=== PATIENT | male | born 1975 | race Caucasian/White ===

== ENCOUNTER 2016-06-28 15:28 | Emergency (ER) | payer BC ==
[~2016-06-28] VITALS: Ht 185.4 cm; Wt 113.4 kg
--- NOTE | ~2016-06-28 | EKG ---
[place] [address] [facility] [employer] [place] [address] ELECTROCARDIOGRAM REPORT Name: KYA POWELL Room #: [facility] [id number] Admission: 06/28/16 Attend Phys: Discharge: Date of : 71 Report #: [id number] THIS REPORT FOR: //name// [facility] ED Test Date: 2016-06-28 Test Time: 15:36:30 Pat Name: KYA POWELL Department: Room: Gender: M Captain Of [employer]: KKREISEPearl : 1975 Requested By: Chucky Gaytan Order Number: [id number] MD: Alvarado Chowdhury Measurements Intervals [place]ia Rate: 70 P: 57 [place]: 160 QRS: 10 QRSD: 114 T: 4 QT: 390 QTc: 421 Interpretive Statements Sinus rhythm Probable left atrial enlargement Incomplete right bundle branch block ST elev, probable normal early repol pattern No previous ECG available for comparison Electronically Signed On 06-28-2016 17:17:25 CDT by Alvarado Chowdhury [email or web address] <ELECTRONICALLY SIGNED> By: Alvarado Chowdhury MD 06/28/16 1717 1536 1536 Alvarado Chowdhury MD /TELMA
[2016-06-28 16:27] LABS: ABSOLUTE NEUTROPHILS 5.5 thou/uL (1.4-8.2); BASOPHILS 0.4 % (0.0-2.0); EOSINOPHILS 1.9 % (0.0-3.0); HEMATOCRIT 42.6 % (42.0-52.0); LYMPHOCYTES 24.7 % (24.0-44.0); MANUAL DIFF NO; MCH 31.5 pg (26.0-34.0); MCHC 35.3 g/dL (28.0-37.0); MCV 89.1 fL (80.0-100.0); PLATELET COUNT 211 thou/uL (150-400); RBC 4.78 mil/uL (4.50-6.00); WBC 8.6 thou/uL (4.0-11.0)
[2016-06-28 16:35] LABS: ANION GAP 8 mmol/L (7-16); BUN 24 mg/dL (7-18); CALCIUM 8.3 mg/dL (8.5-10.1); CHLORIDE 103 mmol/L (98-107); CO2 25 mmol/L (21-32); GLUCOSE 98 mg/dL (74-106); POTASSIUM 3.6 mmol/L (3.5-5.1); SODIUM 136 mmol/L (136-145)
[2016-06-28 16:47] LABS: NT-PRO BRAIN NAT PEPTIDE 23 pg/mL (<300); TROPONIN-I < 0.04 ng/mL (<0.04-0.07)
[2016-06-28 19:03] VITALS: BP 128/81
== END 2016-06-28 19:05 | disposition home or self-care (01) ==
LOC: ER 15:28
PROVIDERS: Nurse Practitioner
DX: R07.9 Chest pain, unspecified (principal)